=== PATIENT | male | born 1965 | race Two or more races ===

== ENCOUNTER 2017-02-21 13:40 | Emergency (ER) | payer MEDICAID ==
[~2017-02-21] VITALS: Ht 170.2 cm; Wt 54.4 kg
[2017-02-21] MEDS ORDERED: cloNIDine HCL 0.1 MG TAB PO ONE (16:15)
[2017-02-21] MEDS ORDERED: ACETAMINOPHEN 325 MG TAB PO ONE (17:15)
[2017-02-21 18:04] VITALS: BP 130/83
== END 2017-02-21 18:11 | disposition home or self-care (01) ==
LOC: ER 13:53
DX: K04.7 Periapical abscess without sinus (principal); G51.0 Bell's palsy; I10 Essential (primary) hypertension; F17.210 Nicotine dependence, cigarettes, uncomplicated
CPT/HCPCS: 70450; 93005

== ENCOUNTER 2018-03-04 17:15 | Inpatient (IN) | payer MEDICAID, OTHER ==
[~2018-03-04] VITALS: Ht 170.2 cm; Wt 60.2 kg
[2018-03-04 18:31] LABS: Basophils # (auto) 0.1 uL; Basophils % (auto) 0.8 % (0.0-2.0); Eosinophils # (auto) 0.1 uL; Eosinophils % (auto) 0.5 % (0.0-7.0); Hematocrit 42.7 % (41.0-53.0); Hemoglobin 14.5 g/dL (13.5-17.5); Lymphocytes # (auto) 1.5 uL; Lymphocytes % (auto) 12.9 % (10.0-50.0); Mean Corpuscular Hemoglobin 31.6 pg (28.0-32.0); Mean Corpuscular Hgb Conc. 33.8 g/dL (32.0-36.0); Mean Corpuscular Volume 93.4 fL (80.0-100.0); Monocytes # (auto) 0.7 uL; Monocytes % (auto) 6.5 % (0.0-12.0); Neutrophils % (auto) 79.3 % (37.0-80.0); Nucleated Red Blood Cells % 0.1 %; Platelet Count (auto) 246 10^3/uL (140-450); Red Blood Cells 4.57 10^6/uL (4.5-5.90); Red Cell Distribution Width 17.2 % (11.8-14.3); White Blood Cell 11.3 10^3/uL (4.4-10.8)
[2018-03-04 18:49] LABS: INR 1.07 (0.9-1.15); Partial Thromboplastin Time 27.8 sec (23.78-33.04); Prothrombin Time 11.4 sec (9.27-12.13)
[2018-03-04 18:58] LABS: Albumin 3.8 g/dL (3.4-5.0); BUN/Creatinine Ratio 11.7; Bilirubin, Total 1.8 mg/dL (0.2-1.0); Calcium 8.7 mg/dL (8.5-10.1); Magnesium 2.3 mg/dL (1.6-2.6); Potassium 3.6 mmol/L (3.5-5.1); Total Protein 7.2 g/dL (6.4-8.2)
[2018-03-04] MEDS: SODIUM CHLORIDE 0.9% 1,000 ML IV SCH (20:40)
[2018-03-04 21:01] LABS: Cholesterol 171 mg/dL (< 200); HDL Cholesterol 42 mg/dL (40-59); LDL Cholesterol 123 mg/dL (< 100); Triglycerides 97 mg/dL (< 150)
[2018-03-04] MEDS ORDERED: cloNIDine HCL 0.1 MG TAB PO PRN (21:15)
[2018-03-04] MEDS ORDERED: ONDANSETRON HCL 4 MG/2 ML VIAL IV PRN (21:15)
[2018-03-04] MEDS ORDERED: NITROGLYCERIN 0.4 MG SL TAB SL PRN (21:15)
[2018-03-04] MEDS ORDERED: MORPHINE SULF(PF) 0.5MG/ML 10ML VIAL IV PRN (21:15)
[2018-03-04] MEDS: ATORVASTATIN 20 MG TAB PO SCH (21:33)
[2018-03-04] MEDS: METOPROLOL TARTRATE 25 MG TAB PO SCH (21:36)
[2018-03-04] MEDS: PANTOPRAZOLE 40 MG TAB PO SCH (21:37)
[2018-03-04 22:30] VITALS: BP 147/98
[2018-03-05 01:15] VITALS: BP 147/98
[2018-03-05 04:07] LABS: Urine Bacteria NONE SEEN /hpf (None Seen); Urine Blood TRACE /uL (Negative); Urine Hyaline Cast FEW /lpf (0 - 2); Urine Mucus FEW (None Seen); Urine Specific Gravity 1.022 (1.001-1.035); Urine WBC 3 /hpf (0 - 3)
[2018-03-05 04:14] LABS: Alcohol, Urine < 3.0 mg/dL (0-5); Amphetamine Screen, Urine POSITIVE (NEGATIVE); Barbiturate Scree,Urine NEGATIVE (NEGATIVE); Benzodiazephine Screen, Urine NEGATIVE (NEGATIVE); Cannabinoid Screen, Urine POSITIVE (NEGATIVE); Cocaine Screen, Urine NEGATIVE (NEGATIVE); Opiate Scree,Urine NEGATIVE (NEGATIVE); Phencyclidine Screen, Urine NEGATIVE (NEGATIVE)
[2018-03-05] MEDS: SODIUM CHLORIDE 0.9% 1,000 ML IV SCH (06:15)
[2018-03-05 06:16] VITALS: BP 136/99
[2018-03-05 06:43] LABS: Basophils # (auto) 0.1 uL; Basophils % (auto) 0.6 % (0.0-2.0); Eosinophils # (auto) 0.1 uL; Hematocrit 41.7 % (41.0-53.0); Hemoglobin 13.9 g/dL (13.5-17.5); Lymphocytes # (auto) 2.4 uL; Lymphocytes % (auto) 25.8 % (10.0-50.0); Mean Corpuscular Hemoglobin 31.3 pg (28.0-32.0); Mean Corpuscular Hgb Conc. 33.4 g/dL (32.0-36.0); Mean Corpuscular Volume 93.8 fL (80.0-100.0); Monocytes # (auto) 0.5 uL; Monocytes % (auto) 5.6 % (0.0-12.0); Neutrophils # (auto) 6.3 uL; Platelet Count (auto) 224 10^3/uL (140-450); Red Blood Cells 4.44 10^6/uL (4.5-5.90); Red Cell Distribution Width 17.5 % (11.8-14.3); White Blood Cell 9.5 10^3/uL (4.4-10.8)
[2018-03-05 06:52] LABS: Potassium 3.5 mmol/L (3.5-5.1)
[2018-03-05 07:03] LABS: Albumin 3.1 g/dL (3.4-5.0); BUN/Creatinine Ratio 13.9
[2018-03-05 07:04] LABS: Bilirubin, Total 1.6 mg/dL (0.2-1.0); Total Protein 6.4 g/dL (6.4-8.2)
[2018-03-05 09:00] VITALS: BP 133/89
[2018-03-05] MEDS ORDERED: LORazepam 2MG/ML-1ML VIAL IV ONE (09:30)
[2018-03-05] MEDS ORDERED: ASPirin-EC 81 mg tab PO SCH (10:00)
[2018-03-05] MEDS: ASPirin-EC 81 mg tab PO SCH (10:07)
[2018-03-05] MEDS: THIAMINE 100mg/ml INJ (200mg/2ml VIAL) IM SCH (10:07)
[2018-03-05] MEDS: PANTOPRAZOLE 40 MG TAB PO SCH (10:07)
[2018-03-05] MEDS: ENOXAPARIN SOD 40 MG/0.4 ML SYRINGE SC SCH (10:08)
[2018-03-05] MEDS: METOPROLOL TARTRATE 25 MG TAB PO SCH ×2 (10:09→21:52)
[2018-03-05 13:00] VITALS: BP 126/94
[2018-03-05 17:00] VITALS: BP 141/92
[2018-03-05 21:30] VITALS: BP 102/70
[2018-03-05] MEDS: ATORVASTATIN 20 MG TAB PO SCH (21:52)
[2018-03-06 05:00] VITALS: BP 123/75
[2018-03-06 06:49] LABS: Basophils # (auto) 0.1 uL; Basophils % (auto) 0.7 % (0.0-2.0); Eosinophils # (auto) 0.1 uL; Eosinophils % (auto) 1.6 % (0.0-7.0); Hematocrit 40.5 % (41.0-53.0); Hemoglobin 13.7 g/dL (13.5-17.5); Lymphocytes # (auto) 2.2 uL; Lymphocytes % (auto) 25.3 % (10.0-50.0); Mean Corpuscular Hemoglobin 31.9 pg (28.0-32.0); Mean Corpuscular Hgb Conc. 33.8 g/dL (32.0-36.0); Mean Corpuscular Volume 94.5 fL (80.0-100.0); Monocytes # (auto) 0.5 uL; Monocytes % (auto) 6.1 % (0.0-12.0); Neutrophils # (auto) 5.8 uL; Neutrophils % (auto) 66.3 % (37.0-80.0); Platelet Count (auto) 203 10^3/uL (140-450); Red Blood Cells 4.28 10^6/uL (4.5-5.90); Red Cell Distribution Width 17.4 % (11.8-14.3); White Blood Cell 8.8 10^3/uL (4.4-10.8)
[2018-03-06 07:10] LABS: Albumin 2.9 g/dL (3.4-5.0); BUN/Creatinine Ratio 17.9
[2018-03-06 07:13] LABS: Bilirubin, Total 0.9 mg/dL (0.2-1.0); Total Protein 6.1 g/dL (6.4-8.2)
[2018-03-06 08:30] VITALS: BP 133/97
[2018-03-06] MEDS: ASPirin-EC 81 mg tab PO SCH (09:32)
[2018-03-06] MEDS: METOPROLOL TARTRATE 25 MG TAB PO SCH ×2 (09:32→22:35)
[2018-03-06] MEDS: ENOXAPARIN SOD 40 MG/0.4 ML SYRINGE SC SCH (09:32)
[2018-03-06] MEDS: PANTOPRAZOLE 40 MG TAB PO SCH (09:32)
[2018-03-06] MEDS: THIAMINE 100mg/ml INJ (200mg/2ml VIAL) IM SCH (09:32)
[2018-03-06 10:41] VITALS: BP 133/97
[2018-03-06 13:01] VITALS: BP 118/89
[2018-03-06 22:00] VITALS: BP 129/93
[2018-03-06] MEDS: ATORVASTATIN 20 MG TAB PO SCH (22:34)
[2018-03-06] MEDS: TEMAZEPAM 15 MG CAP PO PRN (22:36)
[2018-03-07] MEDS: HYDROcodone-ACET 5/325MG TAB PO PRN ×2 (04:40→16:51)
[2018-03-07 05:00] VITALS: BP 139/88
[2018-03-07 08:00] VITALS: BP 149/92
[2018-03-07 09:00] VITALS: BP 149/92
[2018-03-07] MEDS: ENOXAPARIN SOD 40 MG/0.4 ML SYRINGE SC SCH (09:00)
[2018-03-07] MEDS: ASPirin-EC 81 mg tab PO SCH (09:01)
[2018-03-07] MEDS: PANTOPRAZOLE 40 MG TAB PO SCH (09:01)
[2018-03-07] MEDS: LISINOPRIL 5 MG TAB PO SCH (09:01)
[2018-03-07] MEDS: THIAMINE 100mg/ml INJ (200mg/2ml VIAL) IM SCH (09:01)
[2018-03-07] MEDS: METOPROLOL TARTRATE 25 MG TAB PO SCH ×2 (09:02→22:07)
[2018-03-07] MEDS ORDERED: LORazepam 0.5 MG TAB PO PRN (12:15)
[2018-03-07 12:32] VITALS: BP 136/87
[2018-03-07] MEDS: ACETAMINOPHEN 325 MG TAB PO PRN ×2 (12:44→19:05)
[2018-03-07] MEDS ORDERED: cefTRIAXone 1GM/10ml IVPUSH 10 ML IV ONE (13:30)
[2018-03-07 15:38] LABS: Urine Bacteria NONE SEEN /hpf (None Seen); Urine Blood 1+ /uL (Negative); Urine Specific Gravity 1.015 (1.001-1.035); Urine WBC <1 /hpf (0 - 3)
[2018-03-07 17:00] VITALS: BP 129/85
[2018-03-07 21:39] VITALS: BP 105/68
[2018-03-07] MEDS: ATORVASTATIN 20 MG TAB PO SCH (22:06)
[2018-03-08 04:28] VITALS: BP 106/64
[2018-03-08] MEDS: ACETAMINOPHEN 325 MG TAB PO PRN ×2 (07:43→15:59)
[2018-03-08 08:00] VITALS: BP 99/63
[2018-03-08 08:33] LABS: BUN/Creatinine Ratio 16.8; Calcium 8.3 mg/dL (8.5-10.1)
[2018-03-08 09:08] VITALS: BP 99/63
[2018-03-08] MEDS: LISINOPRIL 5 MG TAB PO SCH (10:00)
[2018-03-08] MEDS: METOPROLOL TARTRATE 25 MG TAB PO SCH ×2 (10:00→22:24)
[2018-03-08] MEDS: cefTRIAXone 1GM/10ml IVPUSH 10 ML IV SCH (10:16)
[2018-03-08] MEDS: ASPirin-EC 81 mg tab PO SCH (10:17)
[2018-03-08] MEDS: THIAMINE 100mg/ml INJ (200mg/2ml VIAL) IM SCH (10:17)
[2018-03-08] MEDS: ENOXAPARIN SOD 40 MG/0.4 ML SYRINGE SC SCH (10:17)
[2018-03-08] MEDS: PANTOPRAZOLE 40 MG TAB PO SCH (10:17)
[2018-03-08] MEDS ORDERED: VANCOMYCIN PER PHARMACY 0 MG IV SCH (11:45)
[2018-03-08] MEDS: VANCOMYCIN 1GM/250ML 250 ML IV SCH (13:07)
[2018-03-08 13:16] VITALS: BP 104/69
[2018-03-08 17:07] VITALS: BP 108/70
[2018-03-08] MEDS: HYDROcodone-ACET 5/325MG TAB PO PRN ×2 (18:33→22:23)
[2018-03-08 20:00] VITALS: BP 104/65
[2018-03-08] MEDS: ATORVASTATIN 20 MG TAB PO SCH (22:23)
[2018-03-09 05:00] VITALS: BP 106/63
[2018-03-09 07:27] LABS: Basophils # (auto) 0 uL; Basophils % (auto) 0.4 % (0.0-2.0); Eosinophils # (auto) 0 uL; Eosinophils % (auto) 0.3 % (0.0-7.0); Hematocrit 38.2 % (41.0-53.0); Hemoglobin 12.9 g/dL (13.5-17.5); Lymphocytes # (auto) 0.5 uL; Lymphocytes % (auto) 10.1 % (10.0-50.0); Mean Corpuscular Hemoglobin 31.3 pg (28.0-32.0); Mean Corpuscular Hgb Conc. 33.6 g/dL (32.0-36.0); Mean Corpuscular Volume 93.1 fL (80.0-100.0); Monocytes # (auto) 0.2 uL; Monocytes % (auto) 3.5 % (0.0-12.0); Neutrophils # (auto) 4.3 uL; Neutrophils % (auto) 85.7 % (37.0-80.0); Nucleated Red Blood Cells % 0.1 %; Platelet Count (auto) 118 10^3/uL (140-450); Red Blood Cells 4.11 10^6/uL (4.5-5.90); Red Cell Distribution Width 17.3 % (11.8-14.3)
[2018-03-09 07:52] LABS: Albumin 2.5 g/dL (3.4-5.0); Bilirubin, Total 0.8 mg/dL (0.2-1.0); Calcium 8.2 mg/dL (8.5-10.1); Potassium 3.9 mmol/L (3.5-5.1); Total Protein 6.2 g/dL (6.4-8.2)
[2018-03-09 08:00] VITALS: BP 102/70
[2018-03-09 08:09] LABS: INR 1.07 (0.9-1.15); Partial Thromboplastin Time 32.4 sec (23.78-33.04); Prothrombin Time 11.4 sec (9.27-12.13)
[2018-03-09] MEDS ORDERED: MIDAZOLAM HCL 1MG/1ML-2 ML VIAL IV ONE (09:00)
[2018-03-09] MEDS ORDERED: LIDOCAINE VISCOUS 2% 15ML UD PO ONE (09:00)
[2018-03-09] MEDS ORDERED: fentaNYL CITRATE 100 MCG/2 ML VL IV ONE (09:00)
[2018-03-09] MEDS: cefTRIAXone 1GM/10ml IVPUSH 10 ML IV SCH (09:10)
[2018-03-09] MEDS ORDERED: NALOXONE HCL 0.4 MG/ML VIAL ONE (09:26)
[2018-03-09] MEDS ORDERED: FLUMAZENIL 0.1 MG/ML INJ 10ML MDV IV ONE (09:27)
[2018-03-09 12:00] VITALS: BP 115/78
[2018-03-09] MEDS: LISINOPRIL 5 MG TAB PO SCH (12:26)
[2018-03-09] MEDS: ASPirin-EC 81 mg tab PO SCH (12:26)
[2018-03-09] MEDS: PANTOPRAZOLE 40 MG TAB PO SCH (12:26)
[2018-03-09] MEDS: ENOXAPARIN SOD 40 MG/0.4 ML SYRINGE SC SCH (12:26)
[2018-03-09] MEDS: METOPROLOL TARTRATE 25 MG TAB PO SCH ×2 (12:27→21:21)
[2018-03-09] MEDS: THIAMINE 100mg/ml INJ (200mg/2ml VIAL) IM SCH (12:34)
[2018-03-09] MEDS: VANCOMYCIN 1GM/250ML 250 ML IV SCH (13:27)
[2018-03-09 15:00] VITALS: BP 97/73
[2018-03-09] MEDS: ATORVASTATIN 20 MG TAB PO SCH (21:21)
[2018-03-09] MEDS: TEMAZEPAM 15 MG CAP PO PRN (21:26)
[2018-03-09 22:18] VITALS: BP 106/72
[2018-03-10] MEDS: HYDROcodone-ACET 5/325MG TAB PO PRN ×3 (02:02→19:18)
[2018-03-10 05:17] VITALS: BP 113/72
[2018-03-10 07:44] LABS: Albumin 2.7 g/dL (3.4-5.0); BUN/Creatinine Ratio 20.3; Bilirubin, Total 0.7 mg/dL (0.2-1.0); Calcium 8.7 mg/dL (8.5-10.1); Potassium 4.2 mmol/L (3.5-5.1); Total Protein 6.5 g/dL (6.4-8.2)
[2018-03-10 08:21] VITALS: BP 106/73
[2018-03-10] MEDS: cefTRIAXone 1GM/10ml IVPUSH 10 ML IV SCH (10:02)
[2018-03-10] MEDS: THIAMINE 100mg/ml INJ (200mg/2ml VIAL) IM SCH (10:22)
[2018-03-10] MEDS: ASPirin-EC 81 mg tab PO SCH (10:23)
[2018-03-10] MEDS: ENOXAPARIN SOD 40 MG/0.4 ML SYRINGE SC SCH (10:23)
[2018-03-10] MEDS: LISINOPRIL 5 MG TAB PO SCH (10:23)
[2018-03-10] MEDS: PANTOPRAZOLE 40 MG TAB PO SCH (10:23)
[2018-03-10] MEDS: METOPROLOL TARTRATE 25 MG TAB PO SCH ×2 (10:24→21:55)
[2018-03-10 12:21] VITALS: BP 102/71
[2018-03-10] MEDS: VANCOMYCIN 1GM/250ML 250 ML IV SCH (14:24)
[2018-03-10 17:14] VITALS: BP 103/78
[2018-03-10] MEDS: ATORVASTATIN 20 MG TAB PO SCH (21:54)
[2018-03-10 22:00] VITALS: BP 103/67
[2018-03-11] MEDS: HYDROcodone-ACET 5/325MG TAB PO PRN ×4 (00:07→19:46)
[2018-03-11] MEDS: TEMAZEPAM 15 MG CAP PO PRN ×2 (00:07→22:01)
[2018-03-11 05:49] VITALS: BP 117/74
[2018-03-11 06:42] LABS: Basophils # (auto) 0 uL; Basophils % (auto) 0.5 % (0.0-2.0); Eosinophils # (auto) 0 uL; Eosinophils % (auto) 0.4 % (0.0-7.0); Hematocrit 38.8 % (41.0-53.0); Lymphocytes # (auto) 1.8 uL; Lymphocytes % (auto) 25.6 % (10.0-50.0); Mean Corpuscular Hemoglobin 31.1 pg (28.0-32.0); Mean Corpuscular Hgb Conc. 33.5 g/dL (32.0-36.0); Mean Corpuscular Volume 92.7 fL (80.0-100.0); Monocytes # (auto) 0.5 uL; Monocytes % (auto) 7.6 % (0.0-12.0); Neutrophils # (auto) 4.6 uL; Neutrophils % (auto) 65.9 % (37.0-80.0); Platelet Count (auto) 129 10^3/uL (140-450); Red Blood Cells 4.19 10^6/uL (4.5-5.90); Red Cell Distribution Width 17.3 % (11.8-14.3)
[2018-03-11 07:12] LABS: Albumin 2.5 g/dL (3.4-5.0); BUN/Creatinine Ratio 19.9; Bilirubin, Total 0.6 mg/dL (0.2-1.0); Calcium 8.5 mg/dL (8.5-10.1); Potassium 4.5 mmol/L (3.5-5.1); Total Protein 6.6 g/dL (6.4-8.2)
[2018-03-11 08:00] VITALS: BP 116/75
[2018-03-11] MEDS: cefTRIAXone 1GM/10ml IVPUSH 10 ML IV SCH (09:32)
[2018-03-11] MEDS: THIAMINE 100mg/ml INJ (200mg/2ml VIAL) IM SCH (09:33)
[2018-03-11] MEDS: ASPirin-EC 81 mg tab PO SCH (09:33)
[2018-03-11] MEDS: PANTOPRAZOLE 40 MG TAB PO SCH (09:33)
[2018-03-11] MEDS: ENOXAPARIN SOD 40 MG/0.4 ML SYRINGE SC SCH (09:34)
[2018-03-11] MEDS: METOPROLOL TARTRATE 25 MG TAB PO SCH ×2 (09:35→22:01)
[2018-03-11] MEDS: LISINOPRIL 5 MG TAB PO SCH (09:35)
[2018-03-11 11:33] VITALS: BP 107/80
[2018-03-11] MEDS: VANCOMYCIN 1GM/250ML 250 ML IV SCH (13:41)
[2018-03-11] MEDS ORDERED: RIVAROXABAN 20 MG TAB PO SCH (14:30)
[2018-03-11 15:00] VITALS: BP 92/58
[2018-03-11] MEDS ORDERED: DOCUSATE SOD 100 MG CAP PO PRN (19:00)
[2018-03-11 21:53] VITALS: BP 129/80
[2018-03-11] MEDS: ATORVASTATIN 20 MG TAB PO SCH (22:01)
[2018-03-12] MEDS: HYDROcodone-ACET 5/325MG TAB PO PRN ×3 (03:55→15:03)
[2018-03-12 04:19] VITALS: BP 138/87
[2018-03-12 06:48] LABS: Basophils # (auto) 0 uL; Basophils % (auto) 0.5 % (0.0-2.0); Eosinophils # (auto) 0.1 uL; Eosinophils % (auto) 0.8 % (0.0-7.0); Hematocrit 36.3 % (41.0-53.0); Hemoglobin 12.2 g/dL (13.5-17.5); Lymphocytes # (auto) 1.3 uL; Lymphocytes % (auto) 19.2 % (10.0-50.0); Mean Corpuscular Hemoglobin 31.2 pg (28.0-32.0); Mean Corpuscular Hgb Conc. 33.7 g/dL (32.0-36.0); Mean Corpuscular Volume 92.6 fL (80.0-100.0); Monocytes # (auto) 0.8 uL; Monocytes % (auto) 12.4 % (0.0-12.0); Neutrophils # (auto) 4.4 uL; Neutrophils % (auto) 67.1 % (37.0-80.0); Platelet Count (auto) 141 10^3/uL (140-450); Red Blood Cells 3.92 10^6/uL (4.5-5.90); Red Cell Distribution Width 17.8 % (11.8-14.3); White Blood Cell 6.5 10^3/uL (4.4-10.8)
[2018-03-12 06:51] LABS: Potassium 4.4 mmol/L (3.5-5.1)
[2018-03-12 06:55] LABS: Albumin 2.4 g/dL (3.4-5.0); BUN/Creatinine Ratio 21.8; Calcium 8.2 mg/dL (8.5-10.1)
[2018-03-12 06:58] LABS: Bilirubin, Total 0.7 mg/dL (0.2-1.0); Total Protein 6.3 g/dL (6.4-8.2)
[2018-03-12] MEDS ORDERED: VANCOMYCIN 1GM/250ML 250 ML IV SCH (07:00)
[2018-03-12 08:26] VITALS: BP 115/73
[2018-03-12] MEDS ORDERED: RIVAROXABAN 15 MG TAB PO SCH (10:30)
[2018-03-12] MEDS: PANTOPRAZOLE 40 MG TAB PO SCH (11:01)
[2018-03-12] MEDS: THIAMINE 100mg/ml INJ (200mg/2ml VIAL) IM SCH (11:01)
[2018-03-12] MEDS: ASPirin-EC 81 mg tab PO SCH (11:01)
[2018-03-12] MEDS: cefTRIAXone 1GM/10ml IVPUSH 10 ML IV SCH (11:01)
[2018-03-12] MEDS: LISINOPRIL 5 MG TAB PO SCH (11:02)
[2018-03-12] MEDS: METOPROLOL TARTRATE 25 MG TAB PO SCH (11:02)
[2018-03-12 13:00] VITALS: BP 100/66
[2018-03-12 17:25] VITALS: BP 100/66
== END 2018-03-12 18:45 | disposition home or self-care (01) | DRG 45 ==
LOC: ER 17:15 → TELE 17:16 → TELE-EAST 23:46
PROVIDERS: ADMIT Nurse Practitioner; ATTEND Internal Medicine
PROC: B246ZZ4 Ultrasonography of Right and Left Heart, Transesophageal (ICD-10-PCS; principal; 2018-03-09)
DX: I63.9 Cerebral infarction, unspecified (principal); I21.A1 Myocardial infarction type 2; E43 Unspecified severe protein-calorie malnutrition; I66.22 Occlusion and stenosis of left posterior cerebral artery; I50.9 Heart failure, unspecified; I42.0 Dilated cardiomyopathy; I13.0 Hypertensive heart and chronic kidney disease with heart failure and stage 1 through stage 4 chronic kidney disease, or unspecified chronic kidney disease; E11.22 Type 2 diabetes mellitus with diabetic chronic kidney disease; G81.94 Hemiplegia, unspecified affecting left nondominant side; I70.0 Atherosclerosis of aorta; N18.9 Chronic kidney disease, unspecified; B95.5 Unspecified streptococcus as the cause of diseases classified elsewhere; I82.612 Acute embolism and thrombosis of superficial veins of left upper extremity; I82.622 Acute embolism and thrombosis of deep veins of left upper extremity; I82.A12 Acute embolism and thrombosis of left axillary vein; L03.114 Cellulitis of left upper limb; Z79.01 Long term (current) use of anticoagulants; Z79.82 Long term (current) use of aspirin; Z79.899 Other long term (current) drug therapy; Z82.49 Family history of ischemic heart disease and other diseases of the circulatory system; Z83.3 Family history of diabetes mellitus; F17.210 Nicotine dependence, cigarettes, uncomplicated; M54.2 Cervicalgia; Z68.20 Body mass index [BMI] 20.0-20.9, adult
CPT/HCPCS: 36415; 70450; 70545; 70551; 71045; 71046; 73090; 80048; 80053; 80061; 80202; 80307; 81001; 83735; 84484; 85025; 85610; 85730; 87040; 87076; 87077; 87086; 92523; 93005; 93306; 93312; 93886; 93971; 96360; 96361; 97110; 97116; 99152; 99291; J2250